=== PATIENT | male | born 1985 | race American Indian/Alaskan Native ===

== ENCOUNTER 2017-03-27 11:52 | Inpatient (IN) | payer OTHER ==
[2017-03-27 13:49] LABS: Basophils % (Auto) 0.4 % (0.0-1.8); Eosinophils % (Auto) 0.8 % (0.0-4.3); Hematocrit 40.1 % (35.5-45.6); Hemoglobin 13.7 gm/dl (11.8-15.2); Mean Corpuscular HGB Conc 34 % (32-34); Mean Corpuscular Hemoglobin 30 pg (28-32); Mean Corpuscular Volume 88 fl (84-94); Platelet Count 163 K/mm3 (140-440); Red Blood Count 4.56 M/mm3 (3.65-5.03); Red Cell Distribution Width 12.6 % (13.2-15.2); White Blood Count 15.1 K/mm3 (4.5-11.0)
[2017-03-27 14:00] LABS: Alanine Aminotransferase 139 units/L (7-56); Albumin 4.1 g/dL (3.9-5); Albumin/Globulin Ratio 1.2 %; Alkaline Phosphatase 76 units/L (35-129); Anion Gap 27 mmol/L; BUN/Creatinine Ratio 25.55; Blood Urea Nitrogen 23 mg/dL (9-20); Calcium 9.1 mg/dL (8.4-10.2); Carbon Dioxide 20 mmol/L (22-30); Chloride 87.1 mmol/L (98-107); Glucose 76 mg/dL (75-100); Sodium 131 mmol/L (137-145); Total Protein 7.4 g/dL (6.3-8.2)
[2017-03-27] MEDS ORDERED: ATIVAN ONE ×2 (14:23→14:57)
[2017-03-27] MEDS ORDERED: HALDOL ONE (14:23)
[2017-03-27] MEDS ORDERED: HALDOL IM ONE (14:30)
[2017-03-27] MEDS ORDERED: ATIVAN IV ONE ×2 (14:30→14:40)
[2017-03-27] MEDS ORDERED: NACL 0.9% 1000 ML 1,000 ML IV ONE (14:56)
--- NOTE | 2017-03-27 15:23 | Emergency Department Report ---
HPI - General Chief Complaint: Psych Time Seen by Provider: 03/27/17 13:19 - HPI HPI: This is a 31-year-old Afro-Ni[place]an male who [facility], with the complaint of acute psychosis. There is some unconfirmed history of schizophrenia and either the patient is not on any medications or the patient is refusing to take his medications. However the patient has been having garbled speech, paranoia, tangential thoughts and has displayed extreme combativeness. The [facility], which does have a physician and nursing staff, says that they are unable to place the patient into a 1013 and therefore are unable to force the patient to take any medications to stabilize him. There is no known past medical history. The patient is a poor historian secondary to his current condition. ED Past Medical Hx - Past Medical History Previous Medical History?: No Hx Hypertension: No Hx CVA: No Hx Heart Attack/AMI: No Hx Congestive Heart Failure: No Hx Diabetes: No Hx Deep Vein Thrombosis: No Hx Pulmonary Embolism: No Hx GERD: No Hx Liver Disease: No Hx Renal Disease: No Hx of Cancer: No Hx Sickle Cell Disease: No Hx Arthritis: No Hx Headaches / Migraines: No Hx Seizures: No Hx Kidney Stones: No Hx Psychiatric Treatment: Yes (pt has schizophrenia, acute psychosis) Hx Asthma: No Hx COPD: No Hx Tuberculosis: No Hx Dementia: No Hx HIV: No - Surgical History Past Surgical History?: No Hx Coronary Stent: No Hx Open Heart Surgery: No Hx Pacemaker: No Hx Internal Defibrillator: No Hx Cholecystectomy: No Hx Appendectomy: No Hx Breast Surgery: No - Social History Smoking Status: Unknown if ever smoked ED Review of Systems ROS: Stated complaint: ACUTE PSYCHOSIS Other details as noted in HPI Comment: Unobtainable due to pts medical conditions Physical Exam - Physical Exam Vital Signs: Vital Signs 03/27/17 12:35 Pulse Rate 82 Blood Pressure 159/65 O2 Sat by Pulse 100 Oximetry Physical Exam: GENERAL: The patient is well-developed. HEENT: Normocephalic. Atraumatic. Extraocular motions are intact. Patient has moist mucous membranes. Pupils equal reactive to light bilaterally. NECK: Supple. Trachea is midline. CHEST/LUNGS: Clear to auscultation. There is no respiratory distress noted. HEART/CARDIOVASCULAR: Regular. There is no tachycardia. There is no gallop rub or murmur. ABDOMEN: Abdomen is soft, nontender. Patient has normal bowel sounds. There is no abdominal distention. SKIN: Skin is warm and dry. NEURO: Patient is mostly nonverbal but when he does speak there are tangential thoughts or words expressed. He is not following any commands. MUSCULOSKELETAL: There is no tenderness or deformity. There is no limitation range of motion. There is no evidence of acute injury. ED Course Vital Signs 03/27/17 12:35 Pulse Rate 82 Blood Pressure 159/65 O2 Sat by Pulse 100 Oximetry ED Medical Decision Making - Lab Data Result diagrams: 03/28/17 05:32 03/31/17 05:55 - Medical Decision Making 31-year-old male presents from [facility] with acute psychosis. In doing his medical evaluation for clearance, the patient has multiple lab abnormalities. He has hypokalemia with potassium of 3, elevated bilirubin, elevated transaminases and a significantly elevated creatinine kinase showing rhabdomyolysis. The patient was given IV potassium chloride, IV fluid resuscitation. A transabdominal ultrasound has just been completed to look at the gallbladder, liver and abdominal organs for any reasons for the elevated LFTs. However with these abnormalities, the patient is not medically cleared for psychiatric placement. The patient did require some chemical sedation both as treatment for his acute psychosis but also so his abdominal ultrasound could be completed. He will be admitted as a medical admit and has been made a 1013. He has been accepted for admission by the hospitalist, Dr. Bryan. Critical care attestation.: If time is entered above; I have spent that time in minutes in the direct care of this critically ill patient, excluding procedure time. ED Disposition Clinical Impression: Acute psychosis, Elevated bilirubin, Transaminitis Hypertension Qualifiers: Hypertension type: essential hypertension Qualified Code(s): I10 - Essential ( primary) hypertension Rhabdomyolysis Qualifiers: Rhabdomyolysis type: traumatic Encounter type: initial encounter Qualified Code (s): T79.6XXA - Traumatic ischemia of muscle, initial encounter Disposition: OP ADMIT IP TO THIS HOSP Is pt being admited?: Yes Condition: Fair Time of Disposition: 16:00
--- NOTE | 2017-03-27 15:57 | Admit Criteria Form ---
Admission Criteria Documentation: MUSCULOSKELETAL DISEASE GRG Clinical Indications for Admission to Inpatient Care (Place 'X' for any and all applicable criteria): Hospital admission is needed for appropriate care of the patient because of 1 or more of the following: [ ]I. Fracture, dislocation, or other musculoskeletal injury requiring inpatient care(medical) as indicated by 1 or more of the following(4)(5)(6)(7) [ ]a) Vertebral fracture requiring observation for instability or neurologic compromise (8) [ ]b) Compartment syndrome (proven or cannot be ruled out during observation level of care) (9) [ ]c) Limb-threatening injury [ ]d) Major injury requiring inpatient stabilization such as traction initiation or external fixation before internal fixation or closure of complex or open fracture [ ]e) Major injury requiring inpatient treatment after emergency or observation level care (as appropriate) [ ]f) Severe pain requiring acute inpatient management [ ]g) Injury with suspicion of abuse or neglect (eg., child, dependent elderly) [ ]II. Newly diagnosed or suspected bone, joint, or orthopedic device infection (e.g., osteomyelitis, septic arthritis) needing 1 or more of the following(1)(2)(3) [ ]a) IV antibiotics that cannot be initiated in other than inpatient setting (e.g., patient too unstable or home infusion not available) [ ]b) Device removal or replacement [ ]c) Bone or soft tissue debridement [ ]d) Joint drainage (drain placement or repetitive aspirations) [ ]III. Severe rheumatologic disease (e.g., systemic lupus erythematosus, rheumatoid arthritis) with complications or comorbidities (Also use Optimal Recovery Care Criteria or General Recovery Criteria as appropriate on the basis of predominant condition), including 1 or more of the following( 10)(11)(12)(13) [ ]a) Severe infection (e.g., MAIL TRUCK DRIVER infection, sepsis) (14) [ ]b) Respiratory complications, including 1 or more of the following : [ ]i) Pleural effusion with respiratory compromise [ ]ii) Pulmonary hypertension with congestive failure [ ]iii) Respiratory failure [ ]iv) Pulmonary hemorrhage (15) [ ]c) Hematologic disease, including 1 or more of the following: [ ]i) Coagulopathy with bleeding [ ]ii) Thrombosis with hypercoagulable state [ ]iii) Thrombotic thrombocytopenic purpura [ ]d) Cerebritis with seizures, psychosis, or other severe abnormalities [ ]e) Vertebral destruction with monitoring needed for cervical myelopathy& possible respiratory compromise [ ]f) Exacerbation that requires inpatient treatment (e.g., intravenous immunosuppression) (16) [ ]g) Acute renal failure [ ]h) Cerebritis with seizures, psychosis, Altered mental status, or other neurologic abnormalities [ ]i) Pericardial effusion with tamponade [ ]j) Vertebral destruction, with monitoring needed for cervical myelopathy and possible respiratory compromise [ ]IV. Severe vasculitis with complications or comorbidities (Also use Optimal Recovery Care Criteria General Recovery Criteria as appropriate on the basis of predominant condition), including 1 or more of the following(11)(12)(17)(18)(19)(20) [ ]a) Exacerbation that requires inpatient treatment (e.g., intravenous immunosuppression) (19)(21) [ ]b) Pulmonary hemorrhage (15) [ ]c) MAIL TRUCK DRIVER vasculitis with seizures, psychosis, Altered mental status that is severe or persistent, or other severe abnormalities (22) [ ]d) Cerebral infarction [ ]e) Gastrointestinal ischemia [ ]f) Gangrene or threatened amputation [ ]g) Renal failure (16) [ ]h) Other significant complications of vasculitis ( eg., tissue or organ ischemia, organ dysfunction ) [ ]V. Severe myopathy as indicated by 1 or more of the following (28)(29) [ ]a) New onset of airway compromise or inability to swallow [ ]b) Respiratory deterioration with observation needed for impending respiratory failure [ ]c) Exacerbation that requires inpatient treatment (e.g., intravenous immunosuppression) [ ]. Severe crystal gout (arthropathy) indicated by 1 or more of the following (23)(24) [ ]a) Severe pain requiring acute inpatient management [ ]b) Exacerbation that requires inpatient treatment (e.g., intravenous treatment) [X ]VII.Rhabdomyolysis and 1 or more of the following (25)(26)(27) [ ]a) Acute renal failure [X ]b) Need for intravenous hydration after emergency or observation level care (as appropriate) [ ]c) Inability to maintain oral hydration [ ]d) Change in mental status [ ]e) Electrolyte abnormality that remains after emergency or observation level care (as appropriate) [ ]VIII Post amputation complication, as indicated by ANY ONE of the following [ ]a) Infection [ ]b) Dehiscence [ ]c) Myodesis failure [ ]IX. Severe pain requiring acute inpatient management due to musculoskeletal condition [ ]X. Musculoskeletal Disease and ALL of the following: [ ]a) Symptom or finding for which emergency and observation care have failed or are not considered appropriate (Use General Criteria: Observation Care as appropriate) [ ]b) Presence of ANY ONE of the following [ ]i) A General Admission Criteria [ ]ii) A Pediatric General Admission Criteria The original [facility] [employer] content created by [facility] [employer] has been revised. The portions of the content which have been revised are identified through the use of italic text or in bold, and [facility] has neither reviewed nor approved the modified material. All other unmodified content is copyright [facility] [employer] Please see references footnoted in the original [facility] edition 2016 Admission Criteria Met: Yes
[2017-03-27] MEDS ORDERED: NACL 0.9% 1000 ML 1,000 ML ONE (16:01)
[2017-03-27] MEDS ORDERED: KCL 10MEQ/100ML 10 MEQ/100 ML BAG IV ONE (16:04)
[2017-03-27] MEDS: KCL 10MEQ/100ML 10 MEQ/100 ML BAG IV SCH ×4 (16:23→19:00)
--- NOTE | 2017-03-27 16:26 | Ultrasound Report ---
Ultrasound of the right upper quadrant. History: Elevated bilirubin and transaminase. Findings: There is a uniformly hypoechoic ovoid shaped mass in the superior aspect of the right lobe of the liver. This measures 4.3 x 3.9 cm. The remainder of the liver is normal. The gallbladder is unremarkable. The common bile duct and intrahepatic radicles are normal. The right kidney is normal. The pancreas is not well-visualized. Impression: 4.3 x 3.9 cm hyperechoic mass in the right lobe of the liver. This is nonspecific but could represent a cavernous hemangioma. Further evaluation with CT or MRI using hemangioma protocol is recommended.
[2017-03-27] MEDS ORDERED: MOTRIN ONE (16:32)
[2017-03-27] MEDS ORDERED: TORADOL IV ONE (16:34)
[2017-03-27] MEDS ORDERED: TORADOL ONE (16:35)
[2017-03-27 18:01] LABS: Urine Drugs of Abuse Note Disclamer
[2017-03-27 18:10] LABS: Bilirubin,Urine NEG (Negative); Blood,Urine MOD (Negative); Ketones,Urine 80 mg/dL (Negative); Leukocyte Esterase,Urine NEG (Negative); Mucus,Urine FEW /HPF; Nitrite,Urine NEG (Negative)
--- NOTE | 2017-03-27 19:22 | History and Physical Report ---
History of Present Illness Date of examination: 03/27/17 Date of admission: 03/27/17 18:29 Chief complaint: Severely agitated History of present illness: This is a 31-year-old Afro-[place]ian male who presents to the emergency department [facility] in [facility], with the complaint of acute psychosis. There is some unconfirmed history of schizophrenia and either the patient is not on any medications or the patient is refusing to take his medications. However the patient has been having garbled speech, paranoia, tangential thoughts and has displayed extreme combativeness. The long term, which does have a physician and nursing staff, says that they are unable to place the patient into a 1013 and therefore are unable to force the patient to take any medications to stabilize him. There is no known past medical history. The patient is a poor historian secondary to his current condition. ED Past Medical Hx - Past Medical History Previous Medical History Hx Psychiatric Treatment: Yes (pt has schizophrenia, acute psychosis) - Surgical History Past Surgical History?: No Hx Coronary Stent: No Hx Open Heart Surgery: No Hx Pacemaker: No Hx Internal Defibrillator: No Hx Cholecystectomy: No Hx Appendectomy: No Hx Breast Surgery: No - Social History Smoking Status: Unknown if ever smoked ED Review of Systems ROS: Stated complaint: ACUTE PSYCHOSIS Other details as noted in HPI Comment: Unobtainable due to pts medical conditions Medications and Allergies Allergies Allergy/AdvReac Type Severity Reaction Status Date / Time Unable to Assess Allergy Unverified 03/27/17 13:18 Review of Systems All systems: negative Constitutional: no weight loss, no weight gain Ears, nose, mouth and throat: deferred Cardiovascular: no chest pain, no orthopnea, no palpitations, no rapid/ irregular heart beat, no edema, no syncope, no lightheadedness, no shortness of breath Respiratory: no cough, no cough with sputum, no excessive sputum, no hemoptysis , no shortness of breath, no dyspnea on exertion Gastrointestinal: no abdominal pain, no nausea, no vomiting, no diarrhea, no constipation, no change in bowel habits, no hematemesis, no coffee ground emesis Genitourinary Male: no dysuria, no hematuria, no flank pain, no discharge, no urinary frequency, no urinary hesitancy, no nocturia Musculoskeletal: no neck stiffness, no neck pain, no shooting arm pain, no arm numbness/tingling, no low back pain Integumentary: no rash, no pruritis, no redness, no sores Neurological: no head injury, no transient paralysis, no paralysis, no weakness , no parathesias, no numbness, no tingling Psychiatric: no anxiety, no memory loss, no change in sleep habits, no sleep disturbances, no insomnia Endocrine: no cold intolerance, no heat intolerance, no polyphagia, no excessive thirst Hematologic/Lymphatic: no easy bruising, no easy bleeding Allergic/Immunologic: no urticaria, no allergic rhinitis, no wheezing Exam - Physical Exam Narrative exam: Agitated - Constitutional Vitals: Temp Pulse Resp BP Pulse Ox 97.8 F 81 22 142/72 98 03/27/17 19:07 03/27/17 19:07 03/27/17 19:07 03/27/17 19:07 03/27/17 19:07 General appearance: Present: no acute distress, well-nourished - EENT Eyes: Present: PERRL ENT: hearing intact, clear oral mucosa - Neck Neck: Present: supple, normal ROM - Respiratory Respiratory effort: normal Respiratory: bilateral: CTA - Cardiovascular Heart rate: 80 Rhythm: regular Heart Sounds: Present: S1 & S2. Absent: rub, click - Extremities Extremities: pulses symmetrical, No edema Peripheral Pulses: within normal limits - Abdominal General gastrointestinal: Present: soft, non-tender, non-distended, normal bowel sounds Male genitourinary: Present: normal - Integumentary Integumentary: Present: clear, warm, dry - Musculoskeletal Musculoskeletal: gait normal, strength equal bilaterally - Psychiatric Psychiatric: appropriate mood/affect, intact judgment & insight - Neurologic Neurologic: CNII-XII intact, moves all extremities Results - Labs CBC & Chem 7: 03/27/17 13:22 03/27/17 13:22 Labs: Laboratory Last Values WBC 15.1 K/mm3 (4.5-11.0) H 03/27/17 13:22 RBC 4.56 M/mm3 (3.65-5.03) 03/27/17 13:22 Hgb 13.7 gm/dl (11.8-15.2) 03/27/17 13:22 Hct 40.1 % (35.5-45.6) 03/27/17 13:22 MCV 88 fl (84-94) 03/27/17 13:22 MCH 30 pg (28-32) 03/27/17 13:22 MCHC 34 % (32-34) 03/27/17 13:22 RDW 12.6 % (13.2-15.2) L 03/27/17 13:22 Plt Count 163 K/mm3 (140-440) 03/27/17 13:22 Lymph % (Auto) 9.5 % (13.4-35.0) L 03/27/17 13:22 [facility] % (Auto) 8.3 % (0.0-7.3) H 03/27/17 13:22 Eos % (Auto) 0.8 % (0.0-4.3) 03/27/17 13:22 Baso % (Auto) 0.4 % (0.0-1.8) 03/27/17 13:22 Lymph # 1.4 K/mm3 (1.2-5.4) 03/27/17 13:22 [facility] # 1.3 K/mm3 (0.0-0.8) H 03/27/17 13:22 Eos # 0.1 K/mm3 (0.0-0.4) 03/27/17 13:22 Baso # 0.1 K/mm3 (0.0-0.1) 03/27/17 13:22 Seg Neutrophils % 81.0 % (40.0-70.0) H 03/27/17 13:22 Seg Neutrophils # 12.2 K/mm3 (1.8-7.7) H 03/27/17 13:22 Sodium 131 mmol/L (137-145) L 03/27/17 13:22 Potassium 3.0 mmol/L (3.6-5.0) L 03/27/17 13:22 Chloride 87.1 mmol/L (98-107) L 03/27/17 13:22 Carbon Dioxide 20 mmol/L (22-30) L 03/27/17 13:22 Anion Gap 27 mmol/L 03/27/17 13:22 BUN 23 mg/dL (9-20) H 03/27/17 13:22 Creatinine 0.9 mg/dL (0.8-1.5) 03/27/17 13:22 Estimated GFR > 60 ml/min 03/27/17 13:22 BUN/Creatinine Ratio 25.55 % 03/27/17 13:22 Glucose 76 mg/dL (75-100) 03/27/17 13:22 Calcium 9.1 mg/dL (8.4-10.2) 03/27/17 13:22 Total Bilirubin 1.80 mg/dL (0.1-1.2) H 03/27/17 13:22 AST 278 units/L (5-40) H 03/27/17 13:22 ALT 139 units/L (7-56) H 03/27/17 13:22 Alkaline Phosphatase 76 units/L (35-129) 03/27/17 13:22 Ammonia 38.0 umol/L (25-60) 03/27/17 17:19 Total Creatine Kinase 9243 units/L (55-170) H 03/27/17 13:22 Total Protein 7.4 g/dL (6.3-8.2) 03/27/17 13:22 Albumin 4.1 g/dL (3.9-5) 03/27/17 13:22 Albumin/Globulin Ratio 1.2 % 03/27/17 13:22 TSH 1.790 mlU/mL (0.270-4.200) 03/27/17 13:22 Urine Color Yellow (Yellow) 03/27/17 17:59 Urine Turbidity Clear (Clear) 03/27/17 17:59 Urine pH 5.0 (5.0-7.0) 03/27/17 17:59 Ur Specific [place] 1.025 (1.003-1.030) 03/27/17 17:59 Urine Protein 30 mg/dl mg/dL (Negative) 03/27/17 17:59 Urine Glucose (UA) Neg mg/dL (Negative) 03/27/17 17:59 Urine Ketones 80 mg/dL (Negative) 03/27/17 17:59 Urine Blood Mod (Negative) 03/27/17 17:59 Urine Nitrite Neg (Negative) 03/27/17 17:59 Urine Bilirubin Neg (Negative) 03/27/17 17:59 Urine Urobilinogen 4.0 mg/dL (<2.0) 03/27/17 17:59 Ur Leukocyte Esterase Neg (Negative) 03/27/17 17:59 Urine WBC (Auto) 4.0 /HPF (0.0-6.0) 03/27/17 17:59 Urine RBC (Auto) 5.0 /HPF (0.0-6.0) 03/27/17 17:59 Urine Mucus Few /HPF 03/27/17 17:59 Urine Opiates Screen Presumptive negative 03/27/17 17:59 Urine Methadone Screen Presumptive negative 03/27/17 17:59 Ur Barbiturates Screen Presumptive negative 03/27/17 17:59 Ur Phencyclidine Scrn Presumptive negative 03/27/17 17:59 Ur Amphetamines Screen Presumptive negative 03/27/17 17:59 U Benzodiazepines Scrn Presumptive negative 03/27/17 17:59 Urine Cocaine Screen Presumptive negative 03/27/17 17:59 U Marijuana (THC) Screen Presumptive positive 03/27/17 17:59 Drugs of Abuse Note Disclamer 03/27/17 17:59 Plasma/Serum Alcohol < 0.01 gm% (0-0.07) 03/27/17 13:22 Hepatitis A IgM Ab Non-reactive (NonReactive) 03/27/17 Unknown Hep Bs Antigen Non-reactive (Negative) 03/27/17 Unknown Hep B Core IgM Ab Non-reactive (NonReactive) 03/27/17 Unknown Hepatitis C Antibody Non-reactive (NonReactive) 03/27/17 Unknown Short CBC 03/27/17 Range/Units 13:22 WBC 15.1 H (4.5-11.0) K/mm3 Hgb 13.7 (11.8-15.2) gm/dl Hct 40.1 (35.5-45.6) % Plt Count 163 (140-440) K/mm3 BMP 03/27/17 13:22 Sodium 131 L Potassium 3.0 L Chloride 87.1 L Carbon Dioxide 20 L BUN 23 H Creatinine 0.9 Glucose 76 Calcium 9.1 Cardiac Enzymes 03/27/17 Range/Units 13:22 Total Creatine Kinase 9243 H (55-170) units/L Liver Function 03/27/17 Range/Units 13:22 Total Bilirubin 1.80 H (0.1-1.2) mg/dL AST 278 H (5-40) units/L ALT 139 H (7-56) units/L Alkaline Phosphatase 76 (35-129) units/L Albumin 4.1 (3.9-5) g/dL Urine 03/27/17 Range/Units 17:59 Urine Color Yellow (Yellow) Urine pH 5.0 (5.0-7.0) Ur Specific [place] 1.025 (1.003-1.030) Urine Protein 30 mg/dl (Negative) mg/dL Urine Glucose (UA) Neg (Negative) mg/dL - Imaging and Cardiology US - abdomen: report reviewed (4.3x3.9 cm Hyperechoic mass Rt lobe -??cavernous Hemangioma) Assessment and Plan Advance Directives: Yes (Full code) VTE prophylaxis?: Chemical Plan of care discussed with patient/family: Yes - Patient Problems (1) Rhabdomyolysis Current Visit: Yes Status: Acute Qualifiers: Rhabdomyolysis type: traumatic Encounter type: initial encounter Qualified Code(s): T79.6XXA - Traumatic ischemia of muscle, initial encounter Plan to address problem: IV fluids for now Check CK's daily (2) Transaminitis Current Visit: Yes Status: Acute Plan to address problem: Hepatitis profile negative Alcohol??? induced versus fatty licer (3) Hypokalemia Current Visit: Yes Status: Acute Plan to address problem: supplemented (4) Psychosis Current Visit: Yes Status: Acute Qualifiers: Psychosis type: P Schizoaffective disorder type: unspecified Schizophrenia type: S Qualified Code(s): F25.9 - Schizoaffective disorder, unspecified Plan to address problem: LUCY navas requested (5) DVT prophylaxis Current Visit: Yes Status: Acute Plan to address problem: On Lovenox 40 mg Sq qd
[2017-03-27] MEDS ORDERED: TYLENOL PO PRN (19:47)
[2017-03-27] MEDS ORDERED: ZOFRAN IV PRN (19:47)
[2017-03-27] MEDS ORDERED: DULCOLAX PR PRN (19:47)
[2017-03-27] MEDS ORDERED: MILK OF MAGNESIA PO PRN (19:47)
[2017-03-27] MEDS ORDERED: D5NS 1,000 ML IV SCH (20:00)
[2017-03-28 06:20] LABS: Basophils % (Auto) 0.4 % (0.0-1.8); Hematocrit 39.1 % (35.5-45.6); Hemoglobin 13.5 gm/dl (11.8-15.2); Mean Corpuscular HGB Conc 35 % (32-34); Mean Corpuscular Hemoglobin 30 pg (28-32); Mean Corpuscular Volume 87 fl (84-94); Platelet Count 147 K/mm3 (140-440); Red Blood Count 4.49 M/mm3 (3.65-5.03); Red Cell Distribution Width 12.8 % (13.2-15.2); White Blood Count 8.8 K/mm3 (4.5-11.0)
[2017-03-28 06:22] LABS: Alanine Aminotransferase 108 units/L (7-56); Albumin 3.8 g/dL (3.9-5); Alkaline Phosphatase 70 units/L (35-129); BUN/Creatinine Ratio 18.88; Blood Urea Nitrogen 17 mg/dL (9-20); Calcium 8.6 mg/dL (8.4-10.2); Carbon Dioxide 23 mmol/L (22-30); Glucose 92 mg/dL (75-100)
[2017-03-28 06:23] LABS: Anion Gap 21 mmol/L; Chloride 94.1 mmol/L (98-107); Potassium 3.5 mmol/L (3.6-5.0); Sodium 135 mmol/L (137-145)
[2017-03-28 06:35] LABS: Albumin/Globulin Ratio 1.5 %; Total Protein 6.3 g/dL (6.3-8.2)
[2017-03-28] MEDS: D5W/0.45% NACL/KCL 20 MEQ 20 MEQ/1,000 ML BAG IV SCH ×2 (08:01→17:18)
[2017-03-28] MEDS ORDERED: PERCOCET 5/325 PO PRN (13:47)
--- NOTE | 2017-03-28 14:32 | Consultation ---
History of Present Illness - Reason for Consult Consult date: 03/28/17 Reason for consult: psychiatric evaluation, agitation - Chief Complaint Chief complaint: "I just..." 31 year old male seen for psychiatric evaluation while on the medical floor. There is unconfirmed history of schizophrenia and either the patient is not on any medications or the patient is refusing to take his medications. Per the record, the patient has been having garbled speech, paranoia, tangential thoughts and has displayed combativeness. He was incarcerated, but the staff were unable to force medications. His CK is 9243 and liver enzymes are elevated , although trending down. Sodium is now 135. Medications and Allergies Allergies Allergy/AdvReac Type Severity Reaction Status Date / Time Unable to Assess Allergy Unverified 03/27/17 13:18 Active Meds: Active Medications Acetaminophen (Tylenol) 650 mg PO Q4H PRN PRN Reason: Pain MILD(1-3)/Fever >100.5/[facility] Bisacodyl (Dulcolax) 10 mg MD QDAY PRN PRN Reason: Constipation unrelieved by [facility] Potassium Chloride/Dextrose/Sod Cl (D5w/0.45% Nacl/Kcl 20 Meq) 20 meq in 1,000 mls @ 100 mls/hr IV DIRECT SRAVANI Last Admin: 03/28/17 08:01 Dose: 100 mls/hr Dextrose/Sodium Chloride (D5ns) 1,000 mls @ 125 mls/hr IV DIRECT SRAVANI Magnesium Hydroxide (Milk Of Magnesia) 30 ml PO Q4H PRN PRN Reason: Constipation Ondansetron HCl (Zofran) 4 mg IV Q8H PRN PRN Reason: N/V unrelieved by Reglan Oxycodone/Acetaminophen (Percocet 5/325) 2 tab PO Q4H PRN PRN Reason: Pain, Moderate (4-6) Last Admin: 03/28/17 14:27 Dose: 2 tab Past psychiatric history - Past Medical History Past Medical History: No medical history - past Psychiatric treatment and history psychiatric treatment history: unable to determine - Social History Social history: other (was incarcerated and was brought to the hospital by inmate security) Mental Status Exam - Vital signs Last Vital Signs Temp 99.0 F 03/28/17 08:41 Pulse 101 H 03/28/17 08:41 Resp 18 03/28/17 08:41 BP 115/79 03/28/17 08:41 Pulse Ox 100 03/27/17 23:33 - Exam Narrative exam: unable to assess mood, thought content, thought process, perceptions, memory, sleep, appetite, or SI/HI. He started speaking twice which took 1-2 minutes before he produced the words. He stopped after 2 words. He responded to one question by moving his hand. He indicated he has been in pain more or less. Motor activity is retarded. Orientation: person Results Result Diagrams: 03/28/17 05:32 03/28/17 05:32 Abnormal lab results 03/28/17 03/28/17 Range/Units 05:32 05:32 MCHC 35 H (32-34) % RDW 12.8 L (13.2-15.2) % Hendricks % (Auto) 10.9 H (0.0-7.3) % Eos % (Auto) 7.0 H (0.0-4.3) % Hendricks # 1.0 H (0.0-0.8) K/mm3 Eos # 0.6 H (0.0-0.4) K/mm3 Sodium 135 L (137-145) mmol/L Potassium 3.5 L (3.6-5.0) mmol/L Chloride 94.1 L (98-107) mmol/L AST 159 H (5-40) units/L ALT 108 H (7-56) units/L Albumin 3.8 L (3.9-5) g/dL All other labs normal. Assessment and Plan Assessment and plan: Impression: Mental health history is not confirmed. Alcohol use history is not confirmed UDS is positive for marijuana Collateral is needed. Psychosis is possible. Consider encephalopathy Recommendation: continue medical treatment per the medical team We will follow daily. No medications at this time Delirium Precautions 1. Frequently reorient patient and involve him/her in their care (simple explanations of procedures, tests, medications). 2. Lights on and shades open during daytime hours. 3. Write date and goals of care in a visible place. 4. Try to avoid unnecessary interruptions to sleep during nighttime hours. 5. Obtain glasses, hearing aids from home if patient uses these at baseline. 6. Avoid medications that may exacerbate delirium (especially narcotics, barbiturates, benzos, ambien, lunesta, and medications with excessive anticholinergic properties).
--- NOTE | 2017-03-28 16:20 | Progress Note ---
Assessment and Plan This is a 31-year-old Afro-Panamanian male who presents to the emergency department from retirement, in custody, with the complaint of acute psychosis. There is some unconfirmed history of schizophrenia and either the patient is not on any medications or the patient is refusing to take his medications. However the patient has been having garbled speech, paranoia, tangential thoughts and has displayed extreme combativeness in custody. HE WAS BROUGHT TO THE ER FROM [facility] FOR FURTHER EVALUATION. Rhabdomyolysis -IV fluids for now -Check CK's daily Transaminitis -Hepatitis profile negative -Alcohol??? induced versus fatty licer -cont to monitor, UDS positive for marijuana Hypokalemia -supplement as needed Acute Psychosis -MH eval requested DVT prophylaxis -On Lovenox 40 mg Sq qd Subjective Date of service: 03/28/17 Interval history: Pt seen and examined denies any acute issue, but appears to be agitated Objective - Exam Narrative Exam: General appearance: Present: no acute distress, well-nourished - EENT Eyes: Present: PERRL ENT: hearing intact, clear oral mucosa - Neck Neck: Present: supple, normal ROM - Respiratory Respiratory effort: normal Respiratory: bilateral: CTA - Cardiovascular Heart rate: 80 Rhythm: regular Heart Sounds: Present: S1 & S2. Absent: rub, click - Extremities Extremities: pulses symmetrical, No edema Peripheral Pulses: within normal limits - Abdominal General gastrointestinal: Present: soft, non-tender, non-distended, normal bowel sounds Male genitourinary: Present: normal - Integumentary Integumentary: Present: clear, warm, dry - Musculoskeletal Musculoskeletal: gait normal, strength equal bilaterally - Psychiatric Psychiatric: not cooperative - Neurologic Neurologic: moves all extremities - Constitutional Vitals: Vital Signs - 12hr 03/28/17 03/28/17 08:41 15:17 Temperature 99.0 F 99.5 F Pulse Rate [ 101 H 78 Radial] Respiratory 18 18 Rate Blood Pressure 115/79 117/57 [Left Radial Artery] O2 Sat by Pulse 100 Oximetry - Labs CBC & Chem 7: 03/28/17 05:32 03/28/17 05:32 Labs: Abnormal lab results 03/28/17 03/28/17 Range/Units 05:32 05:32 MCHC 35 H (32-34) % RDW 12.8 L (13.2-15.2) % Mchenry % (Auto) 10.9 H (0.0-7.3) % Eos % (Auto) 7.0 H (0.0-4.3) % Mchenry # 1.0 H (0.0-0.8) K/mm3 Eos # 0.6 H (0.0-0.4) K/mm3 Sodium 135 L (137-145) mmol/L Potassium 3.5 L (3.6-5.0) mmol/L Chloride 94.1 L (98-107) mmol/L AST 159 H (5-40) units/L ALT 108 H (7-56) units/L Albumin 3.8 L (3.9-5) g/dL
[2017-03-29 08:50] LABS: BUN/Creatinine Ratio 8.88; Blood Urea Nitrogen 8 mg/dL (9-20); Calcium 8.7 mg/dL (8.4-10.2); Carbon Dioxide 31 mmol/L (22-30); Chloride 97.8 mmol/L (98-107); Glucose 102 mg/dL (75-100); Potassium 3.5 mmol/L (3.6-5.0); Sodium 139 mmol/L (137-145)
[2017-03-29 09:08] LABS: Anion Gap 14 mmol/L
--- NOTE | 2017-03-29 10:42 | Progress Note ---
Subjective - Reason for Consult Consult date: 03/29/17 Reason for consult: Psychiatry Follow-up - Chief Complaint Chief complaint: "Patient will not answer question" 31 year old male seen for psychiatric evaluation while on the medical floor. There is unconfirmed history of schizophrenia. Today patient is calm, but uncooperative during assessment. He would not answer any my questions. He would stare at me when asked a question. Per the staff, patient has communicated with the medical team. No gestures of SI/HI's. Liver functions and CK elevated, but trending down. Mental Status Exam - Vital signs Last Vital Signs Temp 98.2 F 03/29/17 08:15 Pulse 67 03/29/17 08:15 Resp 18 03/29/17 08:15 BP 114/63 03/29/17 08:15 Pulse Ox 100 03/29/17 08:15 - Exam Narrative exam: MSE: Appearance: calm, uncooperative Behavior: stare Speech: low rate and tone Mood: unable to assess Affect: blunted Thought Process: unable to assess Thought Content: no gestures SI/HI's Motor Activity: lying in bed Cognition: unable to assess Insight: unable to assess Judgment: unable to assess Assessment and Plan Impression: Psychosis is possible. Today patient is calm, but uncooperative during assessment. He would not answer any my questions. He would stare at me when asked a question. Mental health history is not confirmed, Alcohol use history is not confirmed, Positive for marijuana. NA 139, CK 1408. Recommendation: Continue medical treatment per the medical team. Left voicemail for his niece Kendy Morrell . Gather collateral information to determine proper treatment. Delirium Precautions 1. Frequently reorient patient and involve him/her in their care (simple explanations of procedures, tests, medications). 2. Lights on and shades open during daytime hours. 3. Write date and goals of care in a visible place. 4. Try to avoid unnecessary interruptions to sleep during nighttime hours. 5. Obtain glasses, hearing aids from home if patient uses these at baseline. 6. Avoid medications that may exacerbate delirium (especially narcotics, barbiturates, benzos, ambien, lunesta, and medications with excessive anticholinergic properties). 7. Continue 1:1 sitter
[2017-03-29] MEDS: D5W/0.45% NACL/KCL 20 MEQ 20 MEQ/1,000 ML BAG IV SCH (10:59)
--- NOTE | 2017-03-29 14:58 | Progress Note ---
Assessment and Plan This is a 31-year-old Afro-Yemeni male who presents to the emergency department from snf, in custody, with the complaint of acute psychosis. There is some unconfirmed history of schizophrenia and either the patient is not on any medications or the patient is refusing to take his medications. However the patient has been having garbled speech, paranoia, tangential thoughts and has displayed extreme combativeness in custody. HE WAS BROUGHT TO THE ER FROM [facility] FOR FURTHER EVALUATION. Rhabdomyolysis -IV fluids for now -Check CK's daily Transaminitis -Hepatitis profile negative -Alcohol??? induced versus fatty licer -cont to monitor, UDS positive for marijuana Hypokalemia -supplement as needed Acute Psychosis/delirium -MH following DVT prophylaxis -On Lovenox 40 mg Sq qd Subjective Date of service: 03/29/17 Interval history: Pt seen and examined denies any acute issue, not agitated Objective - Exam Narrative Exam: General appearance: Present: no acute distress, well-nourished - EENT Eyes: Present: PERRL ENT: hearing intact, clear oral mucosa - Neck Neck: Present: supple, normal ROM - Respiratory Respiratory effort: normal Respiratory: bilateral: CTA - Cardiovascular Heart rate: 80 Rhythm: regular Heart Sounds: Present: S1 & S2. Absent: rub, click - Extremities Extremities: pulses symmetrical, No edema Peripheral Pulses: within normal limits - Abdominal General gastrointestinal: Present: soft, non-tender, non-distended, normal bowel sounds Male genitourinary: Present: normal - Integumentary Integumentary: Present: clear, warm, dry - Musculoskeletal Musculoskeletal: gait normal, strength equal bilaterally - Psychiatric Psychiatric: not cooperative - Neurologic Neurologic: moves all extremities - Constitutional Vitals: Vital Signs - 12hr 03/29/17 03/29/17 08:15 10:00 Temperature 98.2 F Pulse Rate [ 67 Radial] Pulse Rate [ 67 Right Radial] Respiratory 18 Rate Blood Pressure 114/63 [Left Radial Artery] O2 Sat by Pulse 100 97 Oximetry - Labs CBC & Chem 7: 03/28/17 05:32 03/29/17 08:22 Labs: Abnormal lab results 03/29/17 03/29/17 Range/Units 08:22 08:22 Potassium 3.5 L (3.6-5.0) mmol/L Chloride 97.8 L (98-107) mmol/L Carbon Dioxide 31 H D (22-30) mmol/L BUN 8 L (9-20) mg/dL Glucose 102 H (75-100) mg/dL Total Creatine Kinase 1408 H (55-170) units/L
[2017-03-30] MEDS: D5W/0.45% NACL/KCL 20 MEQ 20 MEQ/1,000 ML BAG IV SCH ×3 (03:19→23:55)
[2017-03-30 09:42] LABS: Anion Gap 16 mmol/L; Blood Urea Nitrogen 7 mg/dL (9-20); Carbon Dioxide 27 mmol/L (22-30); Chloride 100.5 mmol/L (98-107); Creatine Kinase 592 units/L (55-170); Glucose 100 mg/dL (75-100); Sodium 139 mmol/L (137-145)
--- NOTE | 2017-03-30 13:37 | Progress Note ---
Subjective Date of service: 03/30/17 Interval history: his is a 31-year-old Afro-Bangladeshi male who presents [facility] the emergency department [facility] in custody, with the complaint of acute psychosis. There is some unconfirmed history of schizophrenia and either the patient is not on any medications or the patient is refusing to take his medications. However the patient has been having garbled speech, paranoia, tangential thoughts and has displayed extreme combativeness in custody. HE WAS BROUGHT TO THE ER FROM [facility] FOR FURTHER EVALUATION. Assessment and plan: Rhabdomyolysis -Continue IV fluids -Today's CPK down to around 500 Is medically stable Discussed with returned case inspector She needs to go to inpatient psychiatric care Transaminitis -Hepatitis profile negative -Alcohol??? induced versus fatty licer -cont to monitor, UDS positive for marijuana Hypokalemia -improved Acute Psychosis/delirium -MH following Needs inpatient psychiatric treatment DVT prophylaxis -On Lovenox 40 mg Sq qd Subjective: Patient is awake and alert He offers no specific complaints He denies any chest pain or shortness of breath Denies nausea or vomiting or abdominal pain Denies any dysuria Objective - Constitutional Vitals: Vital Signs - 12hr 03/30/17 03/30/17 08:50 09:30 Temperature 97.9 F Pulse Rate [ 73 73 Right Radial] Respiratory 18 18 Rate Blood Pressure 115/65 [Left Radial Artery] O2 Sat by Pulse 98 98 Oximetry General appearance: Present: no acute distress - EENT Eyes: PERRL, EOM intact ENT: hearing intact, clear oral mucosa - Neck Neck: supple, normal ROM, no masses or JVD - Respiratory Respiratory effort: normal Respiratory: bilateral: CTA - Cardiovascular Rhythm: regular Heart Sounds: Present: S1 & S2 Extremities: No edema Extremity abnormal: other (both his feet are covered with dressings) - Gastrointestinal General gastrointestinal: Present: soft, non-tender. Absent: hepatomegaly, splenomegaly Rectal Exam: deferred - Musculoskeletal Musculoskeletal: strength equal bilaterally - Neurologic Neurologic: no focal deficits - Psychiatric Psychiatric: other (mildly psychotic and confused) - Labs CBC & Chem 7: 03/28/17 05:32 03/30/17 08:27 Labs: Abnormal lab results 03/30/17 Range/Units 08:27 BUN 7 L (9-20) mg/dL Creatinine 0.7 L (0.8-1.5) mg/dL Total Creatine Kinase 592 H (55-170) units/L
--- NOTE | 2017-03-30 18:01 | Progress Note ---
Subjective - Reason for Consult Consult date: 03/30/17 Reason for consult: follow up - Chief Complaint Chief complaint: "I'm just going through alot" 31 year old male seen for psychiatric follow up while on the medical floor. There is unconfirmed history of schizophrenia. Today patient is calm, but minimally cooperative during assessment. He answered some questions with "I'm just" or "I'm just going through alot." He would smile intermittently, seemingly appropriately. Per the staff, patient has communicated with the medical team. No gestures of SI/HI's. Liver functions and CK elevated, but trending down. Mental Status Exam - Vital signs Last Vital Signs Temp 98.4 F 03/30/17 16:21 Pulse 72 03/30/17 16:21 Resp 18 03/30/17 16:21 BP 129/60 03/30/17 16:21 Pulse Ox 98 03/30/17 16:21 Assessment and Plan MSE: Appearance: calm, minimally cooperative Behavior: Speech: low rate and tone Mood: unable to assess Affect: blunted Thought Process: unable to assess Thought Content: no gestures SI/HI's Motor Activity: lying in bed Cognition: unable to assess Insight: unable to assess Judgment: unable to assess Impression: Psychosis is possible. Today patient is calm, but minimally cooperative during assessment. It is unclear if he is disorganized, selectively mute, or has secondary gain. Collateral from niece indicates he did not get on the bus to a family event as planned, but instead was found by the police running in traffic. Recommendation: Continue medical treatment per the medical team. Delirium Precautions 1. Frequently reorient patient and involve him/her in their care (simple explanations of procedures, tests, medications). 2. Lights on and shades open during daytime hours. 3. Write date and goals of care in a visible place. 4. Try to avoid unnecessary interruptions to sleep during nighttime hours. 5. Obtain glasses, hearing aids from home if patient uses these at baseline. 6. Avoid medications that may exacerbate delirium (especially narcotics, barbiturates, benzos, ambien, lunesta, and medications with excessive anticholinergic properties). 7. Continue 1:1 sitter
[2017-03-31 06:45] LABS: Alanine Aminotransferase 53 units/L (7-56); Albumin 3.5 g/dL (3.9-5); Albumin/Globulin Ratio 1.5 %; Alkaline Phosphatase 59 units/L (35-129); Anion Gap 14 mmol/L; BUN/Creatinine Ratio 11.66; Blood Urea Nitrogen 7 mg/dL (9-20); Calcium 8.9 mg/dL (8.4-10.2); Carbon Dioxide 27 mmol/L (22-30); Chloride 103.5 mmol/L (98-107); Creatine Kinase 325 units/L (55-170); Glucose 93 mg/dL (75-100); Potassium 4.2 mmol/L (3.6-5.0); Sodium 140 mmol/L (137-145); Total Protein 5.8 g/dL (6.3-8.2)
[2017-03-31] MEDS: D5W/0.45% NACL/KCL 20 MEQ 20 MEQ/1,000 ML BAG IV SCH ×2 (09:08→19:16)
--- NOTE | 2017-03-31 13:41 | Progress Note ---
Assessment and Plan This is a 31-year-old Afro-Ugandan male who presents to the emergency department from half-way, in custody, with the complaint of acute psychosis. There is some unconfirmed history of schizophrenia and either the patient is not on any medications or the patient is refusing to take his medications. However the patient has been having garbled speech, paranoia, tangential thoughts and has displayed extreme combativeness in custody. HE WAS BROUGHT TO THE ER FROM [facility]ISON FOR FURTHER EVALUATION. Assessment and plan: Rhabdomyolysis -Continue IV fluids -Today's CPK down to around 300 Is medically stable Discussed with pillowcase folder he needs to go to inpatient psychiatric care Transaminitis -Hepatitis profile negative -Alcohol??? induced versus fatty licer -cont to monitor, UDS was positive for marijuana Hypokalemia -improved Acute Psychosis/delirium -MH following Needs inpatient psychiatric treatment DVT prophylaxis -On Lovenox 40 mg Sq qd Subjective: Patient is awake and alert He offers no specific complaints He denies any chest pain or shortness of breath Denies nausea or vomiting or abdominal pain Denies any dysuria discussed with sister about plan of care by phone today Subjective Date of service: 03/31/17 Objective - Exam Narrative Exam: General appearance: Present: no acute distress, well-nourished - EENT Eyes: Present: PERRL ENT: hearing intact, clear oral mucosa - Neck Neck: Present: supple, normal ROM - Respiratory Respiratory effort: normal Respiratory: bilateral: CTA - Cardiovascular Heart rate: 80 Rhythm: regular Heart Sounds: Present: S1 & S2. Absent: rub, click - Extremities Extremities: pulses symmetrical, No edema Peripheral Pulses: within normal limits - Abdominal General gastrointestinal: Present: soft, non-tender, non-distended, normal bowel sounds Male genitourinary: Present: normal - Integumentary Integumentary: Present: clear, warm, dry - Musculoskeletal Musculoskeletal: gait normal, strength equal bilaterally - Psychiatric Psychiatric: not cooperative - Neurologic Neurologic: moves all extremities - Constitutional Vitals: Vital Signs - 12hr 03/31/17 08:05 Temperature 98.4 F Pulse Rate [ 72 Right Radial] Respiratory 16 Rate Blood Pressure 118/69 [Left Radial Artery] O2 Sat by Pulse 97 Oximetry - Labs CBC & Chem 7: 03/28/17 05:32 03/31/17 05:55 Labs: Abnormal lab results 03/31/17 Range/Units 05:55 BUN 7 L (9-20) mg/dL Creatinine 0.6 L (0.8-1.5) mg/dL Total Creatine Kinase 325 H (55-170) units/L Total Protein 5.8 L (6.3-8.2) g/dL Albumin 3.5 L (3.9-5) g/dL
[2017-04-01] MEDS: D5W/0.45% NACL/KCL 20 MEQ 20 MEQ/1,000 ML BAG IV SCH (05:37)
--- NOTE | 2017-04-01 15:53 | Progress Note ---
Assessment and Plan This is a 31-year-old Afro-Tunisian male who presents to the emergency department from senior care, in custody, with the complaint of acute psychosis. There is some unconfirmed history of schizophrenia and either the patient is not on any medications or the patient is refusing to take his medications. However the patient has been having garbled speech, paranoia, tangential thoughts and has displayed extreme combativeness in custody. HE WAS BROUGHT TO THE ER FROM RETIREMENT FOR FURTHER EVALUATION. Assessment and plan: Rhabdomyolysis -Continue IV fluids -Today's CPK down to around 300 Is medically stable Discussed with pillowcase cleaner he needs to go to inpatient psychiatric care Transaminitis -Hepatitis profile negative -Alcohol??? induced versus fatty licer -cont to monitor, UDS was positive for marijuana Hypokalemia -improved Acute Psychosis/delirium -MH following Needs inpatient psychiatric treatment DVT prophylaxis -On Lovenox 40 mg Sq qd Subjective: Patient is awake and alert He offers no specific complaints He denies any chest pain or shortness of breath Denies nausea or vomiting or abdominal pain Denies any dysuria discussed with sister about plan of care by phone wait for psych recommendation for disposition, he is still on 1;1 sitter Subjective Date of service: 04/01/17 Objective - Exam Narrative Exam: General appearance: Present: no acute distress, well-nourished - EENT Eyes: Present: PERRL ENT: hearing intact, clear oral mucosa - Neck Neck: Present: supple, normal ROM - Respiratory Respiratory effort: normal Respiratory: bilateral: CTA - Cardiovascular Heart rate: 80 Rhythm: regular Heart Sounds: Present: S1 & S2. Absent: rub, click - Extremities Extremities: pulses symmetrical, No edema Peripheral Pulses: within normal limits - Abdominal General gastrointestinal: Present: soft, non-tender, non-distended, normal bowel sounds Male genitourinary: Present: normal - Integumentary Integumentary: Present: clear, warm, dry - Musculoskeletal Musculoskeletal: gait normal, strength equal bilaterally - Psychiatric Psychiatric: not cooperative - Neurologic Neurologic: moves all extremities - Constitutional Vitals: Vital Signs - 12hr 04/01/17 07:40 Temperature 98.9 F Pulse Rate [ 60 Right Radial] Respiratory 18 Rate Blood Pressure 112/69 [Left Radial Artery] O2 Sat by Pulse 99 Oximetry - Labs CBC & Chem 7: 03/28/17 05:32 03/31/17 05:55
[2017-04-02] MEDS: D5W/0.45% NACL/KCL 20 MEQ 20 MEQ/1,000 ML BAG IV SCH ×3 (00:44→21:34)
--- NOTE | 2017-04-02 15:05 | Progress Note ---
Subjective - Reason for Consult Consult date: 04/02/17 Reason for consult: Psychiatry Follow-up - Chief Complaint Chief complaint: "My life" 31 year old male seen for psychiatric follow up while on the medical floor. There is unconfirmed history of schizophrenia. Today patient is calm, but minimally cooperative during assessment. He would not answers questions fully. He would stop in the middle of his answer and shake his head. He stated in the past that he took zyprexa. Patient did state that he have a lot on his mind at this time. Patient stated that the wounds on his feet came from "walking around. " He denies SI/HI's and AVH's. Mental Status Exam - Vital signs Last Vital Signs Temp 98.3 F 04/02/17 08:00 Pulse 70 04/02/17 08:00 Resp 16 04/02/17 08:00 BP 124/68 04/02/17 08:00 Pulse Ox 98 04/02/17 08:00 - Exam Narrative exam: MSE: Appearance: calm, cooperative (minimum) Behavior: poor eye contact Speech: regular rate and tone Mood: "fine" Affect: labile Thought Process: circumstantial Thought Content: denies SI/HI's and AVH's, disorganized Motor Activity: lying in the bed Cognition: A/Ox 3 Insight: limited Judgment: limited Assessment and Plan Impression: Psychosis is possible, Unspecified Mood DO. Today patient is calm, but minimally cooperative during assessment. CK decreasing. Collateral from niece indicates he did not get on the bus to a family event as planned, but instead was found by the police running in traffic. Recommendation/Plan: Continue 1013 with placement to inpatient psy services. Start Zyprexa 5 mg PO HS for psychosis/mood and Cogentin 0.5 mg PO HS for EPS prevention.
[2017-04-02] MEDS ORDERED: COGENTIN PO SCH (22:00)
--- NOTE | 2017-04-02 22:27 | Progress Note ---
Assessment and Plan This is a 31-year-old Afro-Samoan male who presents to the emergency department from nursing home, in custody, with the complaint of acute psychosis. There is some unconfirmed history of schizophrenia and either the patient is not on any medications or the patient is refusing to take his medications. However the patient has been having garbled speech, paranoia, tangential thoughts and has displayed extreme combativeness in custody. HE WAS BROUGHT TO THE ER FROM [facility] FOR FURTHER EVALUATION. Assessment and plan: Rhabdomyolysis -Continue IV fluids -CPK down to around 300 Is medically stable Discussed with case finisher he needs to go to inpatient psychiatric care Transaminitis -Hepatitis profile negative -Alcohol??? induced versus fatty licer -cont to monitor, UDS was positive for marijuana Hypokalemia -improved Acute Psychosis/delirium -MH following - Started on Zyprexa 5 mg PO HS for psychosis/mood and Cogentin 0.5 mg PO HS for EPS prevention. Needs inpatient psychiatric treatment DVT prophylaxis -On Lovenox 40 mg Sq qd Subjective Date of service: 04/02/17 Interval history: Patient is awake and alert He offers no specific complaints He denies any chest pain or shortness of breath Denies nausea or vomiting or abdominal pain Denies any dysuria he is still on 1;1 sitter Objective - Exam Narrative Exam: General appearance: Present: no acute distress, well-nourished - EENT Eyes: Present: PERRL ENT: hearing intact, clear oral mucosa - Neck Neck: Present: supple, normal ROM - Respiratory Respiratory effort: normal Respiratory: bilateral: CTA - Cardiovascular Heart rate: 80 Rhythm: regular Heart Sounds: Present: S1 & S2. Absent: rub, click - Extremities Extremities: pulses symmetrical, No edema Peripheral Pulses: within normal limits - Abdominal General gastrointestinal: Present: soft, non-tender, non-distended, normal bowel sounds Male genitourinary: Present: normal - Integumentary Integumentary: Present: clear, warm, dry - Musculoskeletal Musculoskeletal: gait normal, strength equal bilaterally - Psychiatric Psychiatric: cooperative - Neurologic Neurologic: moves all extremities - Constitutional Vitals: Vital Signs - 12hr 04/02/17 16:00 Temperature 99.2 F Pulse Rate [ 70 Right Radial] Respiratory 16 Rate Blood Pressure 130/74 [Right Arm] O2 Sat by Pulse 98 Oximetry - Labs CBC & Chem 7: 03/28/17 05:32 07/01/17 05:55
[2017-04-03 00:17] VITALS: BP 119/77
[2017-04-03] MEDS: D5W/0.45% NACL/KCL 20 MEQ 20 MEQ/1,000 ML BAG IV SCH (09:02)
--- NOTE | 2017-04-03 10:00 | Progress Note ---
Assessment and Plan Assessment and plan: This is a 31-year-old Afro-Armenian male who presents to the emergency department from assisted, in custody, with the complaint of acute psychosis. There is some unconfirmed history of schizophrenia and either the patient is not on any medications or the patient is refusing to take his medications. However the patient has been having garbled speech, paranoia, tangential thoughts and has displayed extreme combativeness in custody. HE WAS BROUGHT TO THE ER FROM [facility] FOR FURTHER EVALUATION. Assessment and plan: Rhabdomyolysis -Continue IV fluids -CPK down to around 300 He is medically stable for discharge. To go to inpatient psychiatric care when arranged. Transaminitis -Hepatitis profile negative -Alcohol??? induced versus fatty licer -cont to monitor, UDS was positive for marijuana Hypokalemia -improved Acute Psychosis/delirium -MH following - Started on Zyprexa 5 mg PO HS for psychosis/mood and Cogentin 0.5 mg PO HS for EPS prevention. Needs inpatient psychiatric treatment DVT prophylaxis -On Lovenox 40 mg Sq qd Patient stable to go to inpatient psych. History Interval history: Feels better, Hospitalist Physical - Physical exam Narrative exam: Gen Appearance: No acute distress, HEENT: normocephalic, atraumatic Neck: supple, no JVD Lungs: clear to auscultation bilaterally, no crackles or wheezes Heart: S1 and S2 regular, no murmurs or gallop Abdomen: Soft, non-tender, non-distended, normal bowel sounds Extremity:No edema, clubbing or cyanosis Neuro : Awake alert oriented 3, no focal neurological signs Psych calm - Constitutional Vitals: Temp Pulse Resp BP Pulse Ox 98.4 F 67 18 119/77 100 04/02/17 22:00 04/02/17 22:00 04/02/17 22:00 04/02/17 22:00 04/02/17 22:00 General appearance: Present: no acute distress Results - Labs CBC & Chem 7: 03/28/17 05:32 03/31/17 05:55 Labs: Laboratory Last Values WBC 8.8 K/mm3 (4.5-11.0) 03/28/17 05:32 RBC 4.49 M/mm3 (3.65-5.03) 03/28/17 05:32 Hgb 13.5 gm/dl (11.8-15.2) 03/28/17 05:32 Hct 39.1 % (35.5-45.6) 03/28/17 05:32 MCV 87 fl (84-94) 03/28/17 05:32 MCH 30 pg (28-32) 03/28/17 05:32 MCHC 35 % (32-34) H 03/28/17 05:32 RDW 12.8 % (13.2-15.2) L 03/28/17 05:32 Plt Count 147 K/mm3 (140-440) 03/28/17 05:32 Lymph % (Auto) 18.7 % (13.4-35.0) 03/28/17 05:32 [place] % (Auto) 10.9 % (0.0-7.3) H 03/28/17 05:32 Eos % (Auto) 7.0 % (0.0-4.3) H 03/28/17 05:32 Baso % (Auto) 0.4 % (0.0-1.8) 03/28/17 05:32 Lymph # 1.7 K/mm3 (1.2-5.4) 03/28/17 05:32 [place] # 1.0 K/mm3 (0.0-0.8) H 03/28/17 05:32 Eos # 0.6 K/mm3 (0.0-0.4) H 03/28/17 05:32 Baso # 0.0 K/mm3 (0.0-0.1) 03/28/17 05:32 Seg Neutrophils % 63.0 % (40.0-70.0) 03/28/17 05:32 Seg Neutrophils # 5.6 K/mm3 (1.8-7.7) 03/28/17 05:32 Sodium 140 mmol/L (137-145) 03/31/17 05:55 Potassium 4.2 mmol/L (3.6-5.0) 03/31/17 05:55 Chloride 103.5 mmol/L (98-107) 03/31/17 05:55 Carbon Dioxide 27 mmol/L (22-30) 03/31/17 05:55 Anion Gap 14 mmol/L 03/31/17 05:55 BUN 7 mg/dL (9-20) L 03/31/17 05:55 Creatinine 0.6 mg/dL (0.8-1.5) L 03/31/17 05:55 Estimated GFR > 60 ml/min 03/31/17 05:55 BUN/Creatinine Ratio 11.66 % 03/31/17 05:55 Glucose 93 mg/dL (75-100) 03/31/17 05:55 Calcium 8.9 mg/dL (8.4-10.2) 03/31/17 05:55 Total Bilirubin 0.20 mg/dL (0.1-1.2) 03/31/17 05:55 AST 32 units/L (5-40) 03/31/17 05:55 ALT 53 units/L (7-56) 03/31/17 05:55 Alkaline Phosphatase 59 units/L (35-129) 03/31/17 05:55 Ammonia 38.0 umol/L (25-60) 03/27/17 17:19 Total Creatine Kinase 325 units/L (55-170) H 03/31/17 05:55 Total Protein 5.8 g/dL (6.3-8.2) L 03/31/17 05:55 Albumin 3.5 g/dL (3.9-5) L 03/31/17 05:55 Albumin/Globulin Ratio 1.5 % 03/31/17 05:55 TSH 1.790 mlU/mL (0.270-4.200) 03/27/17 13:22 Urine Color Yellow (Yellow) 03/27/17 17:59 Urine Turbidity Clear (Clear) 03/27/17 17:59 Urine pH 5.0 (5.0-7.0) 03/27/17 17:59 Ur Specific [place] 1.025 (1.003-1.030) 03/27/17 17:59 Urine Protein 30 mg/dl mg/dL (Negative) 03/27/17 17:59 Urine Glucose (UA) Neg mg/dL (Negative) 03/27/17 17:59 Urine Ketones 80 mg/dL (Negative) 03/27/17 17:59 Urine Blood Mod (Negative) 03/27/17 17:59 Urine Nitrite Neg (Negative) 03/27/17 17:59 Urine Bilirubin Neg (Negative) 03/27/17 17:59 Urine Urobilinogen 4.0 mg/dL (<2.0) 03/27/17 17:59 Ur Leukocyte Esterase Neg (Negative) 03/27/17 17:59 Urine WBC (Auto) 4.0 /HPF (0.0-6.0) 03/27/17 17:59 Urine RBC (Auto) 5.0 /HPF (0.0-6.0) 03/27/17 17:59 Urine Mucus Few /HPF 03/27/17 17:59 Urine Opiates Screen Presumptive negative 03/27/17 17:59 Urine Methadone Screen Presumptive negative 03/27/17 17:59 Ur Barbiturates Screen Presumptive negative 03/27/17 17:59 Ur Phencyclidine Scrn Presumptive negative 03/27/17 17:59 Ur Amphetamines Screen Presumptive negative 03/27/17 17:59 U Benzodiazepines Scrn Presumptive negative 03/27/17 17:59 Urine Cocaine Screen Presumptive negative 03/27/17 17:59 U Marijuana (THC) Screen Presumptive positive 03/27/17 17:59 Drugs of Abuse Note Disclamer 03/27/17 17:59 Plasma/Serum Alcohol < 0.01 gm% (0-0.07) 03/27/17 13:22 Hepatitis A IgM Ab Non-reactive (NonReactive) 03/27/17 Unknown Hep Bs Antigen Non-reactive (Negative) 03/27/17 Unknown Hep B Core IgM Ab Non-reactive (NonReactive) 03/27/17 Unknown Hepatitis C Antibody Non-reactive (NonReactive) 03/27/17 Unknown
--- NOTE | 2017-04-03 12:24 | Progress Note ---
Subjective - Reason for Consult Consult date: 04/03/17 Reason for consult: Psychiatry Follow-up - Chief Complaint Chief complaint: "How are you doing" 31 year old male seen for psychiatric follow up while on the medical floor. There is unconfirmed history of schizophrenia. Today patient is calm and cooperative during assessment. Patient was more engaging today and willing to answer questions. 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 He stated that he is aware that he must management his wounds on his feet to prevent infection (insightful). Per conversation with his niece Kendy Morrell, patient is a artist (musician). He denies SI/HI's, AVH's, and depression symptoms. He denies any side effects from the Zyprexa. Mental Status Exam - Vital signs Last Vital Signs Temp 98.4 F 04/02/17 22:00 Pulse 67 04/02/17 22:00 Resp 18 04/02/17 22:00 BP 119/77 04/02/17 22:00 Pulse Ox 100 04/02/17 22:00 - Exam Narrative exam: MSE: Appearance: calm, cooperative Behavior: good eye contact Speech: regular rate and tone Mood: "fine" Affect: labile Thought Process: circumstantial Thought Content: denies SI/HI's and AVH's, disorganized Motor Activity: lying in the bed Cognition: A/Ox 3 Insight: fair Judgment: fair Assessment and Plan Impression: Historical Dx: Schizophrenia. Today patient is calm and cooperative during assessment. Collateral from nimirlande Morrell [phone] that her uncle (the patient) can return home with her once discharged. She stated that he was diagnosed with schizophrenia in 2007. She stated that she will take him to his outpatient psy services appts. Recommendation/Plan: Rescind 1013. Continue Zyprexa 5 mg PO HS for psychosis/ mood and Cogentin 0.5 mg PO HS for EPS prevention. Discussed possible metabolic side effects of Zyprexa with patient. Patient given outpatient psy services information for his local area.
--- NOTE | 2017-04-03 15:19 | Discharge Summary ---
Providers - Providers Date of Admission: 03/27/17 18:29 Date of discharge: 04/03/17 Attending physician: CLIFFORD ZENDEJAS 03/27/17 20:18 Consult to Mental Health [CONS] Routine Reason For Exam: Acute psychosis Place consult to:: mental health Notified:: mental health Phone number called:: [phone] Was contact made?: Yes If yes, spoke with:: sarai Time called:: 09:00 03/28/17 13:38 Consult to Wound/ET Nurse [CONS] Routine Reason For Exam: wound eval Primary care physician: [employer]ER Hospitalization Condition: Fair Hospital course: Patient is a 31-year-old male with history of schizophrenia, who presents to the emergency department from halfway, in custody, with the complaint of acute psychosis. However the patient has been having garbled speech, paranoia, tangential thoughts and has displayed extreme combativeness in custody. He was therefore brought to the Emergency from longterm for evaluation. He was diagnosed with acute psychosis. He was also found to have rhabdomyolysis with Creatine kinase of 9243. He was started on iv fluids, antipsychotics and admitted involuntarily. He was evaluated by psychiatry, was on Zyprexa and Cogentin. Patient improved after several days. Creatine kinase improved and came down close to baseline. He was re-evaluated by psychiatry and 1013 rescinded on and was therefore discharged home. Total time spent on discharge, 34 mins Disposition: DC-01 TO HOME OR SELFCARE - Discharge Diagnoses (1) Acute psychosis Status: Acute (2) Rhabdomyolysis Status: Acute Qualifiers: Rhabdomyolysis type: traumatic Encounter type: initial encounter Qualified Code(s): T79.6XXA - Traumatic ischemia of muscle, initial encounter (3) Schizophrenia Status: Acute Qualifiers: Schizophrenia type: S (4) Transaminitis Status: Acute Core Measure Documentation - Palliative Care Palliative Care/ Comfort Measures: Not Applicable - Core Measures Any of the following diagnoses?: none Exam - Constitutional Vitals: Temp Pulse Resp BP Pulse Ox 98.4 F 67 18 119/77 100 04/02/17 22:00 04/02/17 22:00 04/02/17 22:00 04/02/17 22:00 04/02/17 22:00 General appearance: Present: no acute distress - EENT ENT: hearing intact - Neck Neck: Present: supple - Respiratory Respiratory: bilateral: CTA, negative: diminished, rales, rhonchi, wheezing - Cardiovascular Rhythm: regular Heart Sounds: Present: S1 & S2 - Abdominal General gastrointestinal: Present: soft, non-tender, normal bowel sounds - Musculoskeletal Musculoskeletal: strength equal bilaterally Plan Activity: no restrictions Diet: regular Additional Instructions: 1.Follow with PCP or [facility] in 1 week. 2.Follow up with mental health facility in 1 week Follow up with: PRIMARY CARE, [Primary Care Provider] - 3-5 Days Prescriptions: Benztropine [Cogentin] 0.5 mg PO HS #30 tablet OLANzapine [ZyPREXA] 5 mg PO HS #30 tablet
== END 2017-04-03 18:45 | disposition home or self-care (01) | DRG 564 ==
LOC: ED 11:52 → 3A 18:29 → EEVIPCON 18:29 → 3A 21:43
PROVIDERS: ADMIT Internal Medicine; ATTEND Internal Medicine
DX: T79.6XXA Traumatic ischemia of muscle, initial encounter (principal); G93.40 Encephalopathy, unspecified; F23 Brief psychotic disorder; R74.0 Nonspecific elevation of levels of transaminase and lactic acid dehydrogenase [LDH]; E87.6 Hypokalemia; I10 Essential (primary) hypertension; F25.9 Schizoaffective disorder, unspecified; Z88.0 Allergy status to penicillin; X58.XXXA Exposure to other specified factors, initial encounter
CPT/HCPCS: 36415; 76705; 80048; 80053; 80074; 80307; 80320; 81001; 82140; 82550; 84443; 85025; 96361; 96365; 96366; 96372; 96375; G0480; J1630; J1885; J2060; J3480; J7030